=== PATIENT | male | born 1955 | race Caucasian/White ===

== ENCOUNTER 2019-05-08 14:22 | Emergency (ER) | payer MEDICAID, MEDICARE ==
[~2019-05-08] VITALS: Ht 188 cm; Wt 120.0 kg
[~2019-05-08 14:22] MED LIST: ASPI-41 PO; ATOR10TA PO; DOCU100C40 PO; HYDR-3972 PO; IBUP-1984 PO; LISI-604 PO; METO25TA6 PO
--- NOTE | 2019-05-08 14:45 | NUR ---
Pt and family stated that they were coming to the ER because of potential occluded carotid. Pt appeared normal with no deficits per family except for minor hearing loss, unclear of duration. Stated there was a stroke 5 days ago and that there was a bleed. The also made unclear reference that [facility] knew "they were coming". Pt AOx4, no facial droop or arm drift, no tongue deviation or complaints of numbness/tingling at this time.
--- NOTE | 2019-05-08 15:19 | NUR ---
Stroke RN bedside assessing pt.
--- NOTE | 2019-05-08 17:00 | NUR ---
Portable Router Operator Lenard sought clarification on pt status while the RN covering Primary RN for break. Shared what I knew, including no STROKE Alert had been called to my knowledge. Pt arrived ED based on recommendation of PCP and lab results including carotid occlusion. Stroke RN had been shortly after pt arrival;no STROKE Alert called based on initial assessment, though given pt's hx, additional neuro assessments and tests were being sought. Pt's voiced confusion about pt's dx. Explained no STROKE Alert had been called in the ED, but additional testing and recommendation for admission was being sought. Pt's voiced understanding.
[2019-05-08 17:05] LABS: BASOPHILS # (AUTO) 0.1 X10'3 (0-0.2); BASOPHILS % (AUTO) 0.6 % (0-1); EOSINOPHILS # (AUTO) 0.3 X10'3 (0-0.9); EOSINOPHILS % (AUTO) 3.2 % (0-6); HEMATOCRIT 42.8 % (42.0-52.0); HEMOGLOBIN 14.7 g/dl (14.0-17.9); LYMPHOCYTES # (AUTO) 2.4 X10'3 (1.1-4.8); LYMPHOCYTES % (AUTO) 28.4 % (21-51); MEAN CORPUSCULAR HEMOGLOBIN 29.8 PG (27.0-31.0); MEAN CORPUSCULAR HGB CONC 34.2 g/dL (33.0-36.5); MEAN CORPUSCULAR VOLUME 87.1 FL (78-98); MEAN PLATELET VOLUME 8.7 FL (7.4-10.4); MONOCYTES # (AUTO) 0.7 X10'3 (0-0.9); MONOCYTES % (AUTO) 7.9 % (2-12); NEUTROPHILS # (AUTO) 5.1 X10'3 (1.8-7.7); NEUTROPHILS % (AUTO) 59.9 % (42-75); PLATELET COUNT 262 X10'3 (140-440); RED BLOOD COUNT 4.92 X10'6 (4.70-6.10); RED CELL DISTRIBUTION WIDTH 13.2 % (11.5-14.5); WHITE BLOOD COUNT 8.6 X10'3 (4.5-11.0)
[2019-05-08 17:14] LABS: ALANINE AMINOTRANSFERASE 21 U/L (12-78); ALBUMIN 3.4 G/DL (3.4-5.0); ALBUMIN/GLOBULIN RATIO 1.1 (1.1-1.5); ALKALINE PHOSPHATASE 57 IU/L (46-116); ANION GAP 6 (8-16); ASPARTATE AMINO TRANSFERASE 19 U/L (10-37); BILIRUBIN,TOTAL 0.6 MG/DL (0.1-1.0); BLOOD UREA NITROGEN 16 MG/DL (7-18); BUN/CREATININE RATIO 11.8 (5.4-32.0); CALCIUM 8.3 MG/DL (8.5-10.1); CHLORIDE 109 MMOL/L (99-107); CREATININE 1.36 MG/DL (0.60-1.10); GLUCOSE 87 MG/DL (70-104); POTASSIUM 4.4 MMOL/L (3.5-5.1); SODIUM 144 MMOL/L (135-145); TOTAL CARBON DIOXIDE 29.5 MMOL/L (24-32); TOTAL PROTEIN 6.5 G/DL (6.4-8.2); eGFR 53 ML/MIN
[2019-05-08 17:38] LABS: CLARITY,URINE CLOUDY (Clear); COLOR,URINE YELLOW (Yellow); GLUCOSE, URINE NEGATIVE (Neg); KETONES,URINE NEGATIVE (Neg); LEUKOCYTE ESTERASE ,URINE NEGATIVE (Neg); NITRITES, URINE NEGATIVE (Neg); OCCULT BLOOD,URINE NEGATIVE (Neg); PH,URINE 7.5 (4.8-8.0); PROTEIN,URINE NEGATIVE (Neg); UA COLLECTION TYPE CLN CATCH MIDSTREAM
[2019-05-08 17:46] LABS: PARTIAL THROMBOPLASTIN TIME 26 SECONDS (22-32)
[2019-05-08 17:52] LABS: SQUAMOUS EPITHELIAL CELL,UR FEW /LPF (FEW)
[2019-05-08 17:54] LABS: AMORPHOUS PHOSPHATES 3+; BACTERIA,URINE FEW /HPF (Neg); RBC,URINE 0-2 /HPF (0-2); WBC,URINE 0-4 /HPF (0-4)
[2019-05-08] MEDS ORDERED: CLOP75TA15 PO (18:33)
[2019-05-08] MEDS ORDERED: ASPI-101 PO (18:33)
[2019-05-08] MEDS ORDERED: CLOP300T14 PO (18:38)
[2019-05-08] MEDS ORDERED: ATOR80TA PO (18:44)
[2019-05-08 18:50] VITALS: BP 159/93
== END 2019-05-08 19:00 | disposition home or self-care (01) ==
LOC: ER 14:23
DX: I63.89 Other cerebral infarction (principal); N39.498 Other specified urinary incontinence; F17.200 Nicotine dependence, unspecified, uncomplicated; I25.10 Atherosclerotic heart disease of native coronary artery without angina pectoris; I10 Essential (primary) hypertension; I25.2 Old myocardial infarction; Z95.1 Presence of aortocoronary bypass graft; Z95.0 Presence of cardiac pacemaker; Z79.82 Long term (current) use of aspirin; Z79.899 Other long term (current) drug therapy
CPT/HCPCS: 36415; 71045; 80053; 81001; 82948; 85025; 85610; 85730; 93005; 99285

== ENCOUNTER 2023-06-15 08:45 | Day surgery (SDC) | payer BC, MEDICAID ==
[2023-06-11 15:13] LABS: BASOPHILS # (AUTO) 0.1 X10'3 (0-0.2); BASOPHILS % (AUTO) 0.6 % (0-1); EOSINOPHILS # (AUTO) 0.3 X10'3 (0-0.9); EOSINOPHILS % (AUTO) 3.5 % (0-6); LYMPHOCYTES # (AUTO) 2.1 X10'3 (1.1-4.8); LYMPHOCYTES % (AUTO) 24.4 % (21-51); MEAN CORPUSCULAR HEMOGLOBIN 29.8 PG (27.0-31.0); MEAN CORPUSCULAR HGB CONC 33.3 g/dL (33.0-36.5); MEAN CORPUSCULAR VOLUME 89.7 FL (78-98); MEAN PLATELET VOLUME 8.6 FL (7.4-10.4); MONOCYTES # (AUTO) 0.5 X10'3 (0-0.9); MONOCYTES % (AUTO) 6.2 % (2-12); NEUTROPHILS # (AUTO) 5.6 X10'3 (1.8-7.7); NEUTROPHILS % (AUTO) 65.3 % (42-75); PRE OP HEMATOCRIT 42.9 % (42.0-52.0); PRE OP HEMOGLOBIN 14.3 g/dL (14.0-17.9); PRE OP PLATELET COUNT 237 X10'3 (140-440); PRE OP WHITE BLOOD COUNT 8.6 10'3 (4.8-10.8); RED BLOOD COUNT 4.78 X10'6 (4.70-6.10); RED CELL DISTRIBUTION WIDTH 13.9 % (11.5-14.5)
[2023-06-11 15:16] LABS: ALBUMIN 3.3 G/DL (3.4-5.0); ALKALINE PHOSPHATASE 71 IU/L (46-116); BLOOD UREA NITROGEN 16 MG/DL (7-18); CALCIUM 8.1 MG/DL (8.5-10.1); CHLORIDE 112 MMOL/L (99-107); CREATININE 1.46 MG/DL (0.60-1.10); PRE OP ALT 22 U/L (30-65); PRE OP ANION GAP 7 (8-16); PRE OP AST 24 U/L (10-37); PRE OP BILIRUB, TOTAL 0.8 MG/DL (0.0-1.0); PRE OP GLUCOSE 78 MG/DL (70-104); PRE OP POTASSIUM 4.5 MMOL/L (3.4-5.1); PRE OP SODIUM 147 MMOL/L (135-145); TOTAL CARBON DIOXIDE 28.4 MMOL/L (24-32); TOTAL PROTEIN 6.6 G/DL (6.4-8.2); eGFR 48 ML/MIN
[2023-06-15] VITALS (8 sets, daily range): BP systolic 132–168; BP diastolic 80–103; PULSE 60–64; RESP 14–17; TEMP 97.9; O2SAT 96–98
[~2023-06-15] VITALS: Ht 188 cm; Wt 114.8 kg
[2023-06-15] MEDS: DOCUMENT DATE & TIME OF BETA-BLOCKER PO ONE (05:30)
[2023-06-15] MEDS: cefazolin 2gm/D5W 100mL 100 ML IV ONE (05:30)
[~2023-06-15 08:45] MED LIST changes: +ASPI-1174 PO; -ASPI-41 PO; +ATOR-2 PO; -ATOR10TA PO; +CLOP75TA34 PO; -DOCU100C40 PO; -HYDR-3972 PO; -IBUP-1984 PO; -LISI-604 PO; +LISI40TA13 PO; +METO-395 PO; -METO25TA6 PO; +SERT-153 PO
[2023-06-15] MEDS: ringers solution, lacted 1,000 ML IV SCH (09:05)
[2023-06-15] MEDS: famotidine 20mg tablet PO ONE (09:05)
[2023-06-15] MEDS ORDERED: LIDOcaine 1% (10mg/ml)w/preservative inj. 20ml MDV ONE (10:59)
[2023-06-15] MEDS ORDERED: fentaNYL/PF 50MCG/1 ML 2ML syringe ONE (12:23)
[2023-06-15] MEDS ORDERED: midazolam 1 mg/ML 2ml injection ONE (12:23)
[2023-06-15] MEDS ORDERED: propofol inj 20 ML IV ONE (12:23)
[2023-06-15] MEDS: LIDOcaine 1% (10mg/ml)w/preservative inj. 20ml MDV SQ ONE (12:51)
[2023-06-15] MEDS ORDERED: morphine 2 MG/ML inj. syringe IV PRN (14:55)
[2023-06-15] MEDS ORDERED: proCHLORperazine 10 MG/2 ml inj IV PRN (14:55)
[2023-06-15] MEDS ORDERED: morphine 4 MG/ML inj SYRINge IV PRN (14:55)
[2023-06-15] MEDS ORDERED: ringers solution, lacted 1,000 ML IV SCH (14:55)
[2023-06-15] MEDS ORDERED: meperidine/PF 25mg/ml syringe IV PRN ×3 (14:55)
[2023-06-15] MEDS ORDERED: ondansetron/PF 4mg/2ml inj IV PRN (14:55)
== END 2023-06-15 14:16 | disposition home or self-care (01) ==
LOC: PAS 08:45
PROVIDERS: ATTEND Surgery
DX: Z45.010 Encounter for checking and testing of cardiac pacemaker pulse generator [battery] (principal); I10 Essential (primary) hypertension; I25.10 Atherosclerotic heart disease of native coronary artery without angina pectoris; E78.5 Hyperlipidemia, unspecified; Z86.73 Personal history of transient ischemic attack (TIA), and cerebral infarction without residual deficits; Z79.2 Long term (current) use of antibiotics; Z79.899 Other long term (current) drug therapy; Z95.1 Presence of aortocoronary bypass graft
CPT/HCPCS: 33228; 36415; 71046; 80053; 82948; 85025; 85610; 85730; C1785; J0690; J2250; J2704; J3010; J3490; J7120; Z7506; Z7512; A4215; A6258; A6449; A7000